=== PATIENT | male | born 1965 | race American Indian/Alaskan Native ===

== ENCOUNTER 2017-06-09 21:06 | Emergency (ER) | payer SELFPAY ==
--- NOTE | 2017-06-09 22:06 | Emergency Department Report ---
ED Back Pain/Injury HPI - General Chief Complaint: Back Pain/Injury Stated Complaint: BACK PAIN/WORK RELATED Source: patient Limitations: No Limitations - History of Present Illness Initial Comments: Patient relates he injured lower back while lifting something heavy at work today while bending over. Patient denies any leg numbness or weakness, denies abdominal pain, nausea vomiting diarrhea, or testicular pain. Patient states he has had this pain before. Patient deferring x-rays MD Complaint: back pain -: Sudden, This afternoon Place: work Radiation: none Severity: moderate Severity scale (0 -10): 5 Quality: aching Consistency: constant Worsens With: movement, walking Context: while lifting, bending Associated Symptoms: denies other symptoms - Related Data Previous Rx's Medication Instructions Recorded Last Taken Type Acetaminophen/Codeine [Tylenol #3] 1 tab PO Q6H PRN #20 tab 03/10/15 Unknown Rx Cyclobenzaprine [Flexeril 10mg] 10 mg PO TID PRN #30 tablet 03/10/15 Unknown Rx Ibuprofen [Motrin] 600 mg PO Q8H PRN #50 tablet 03/10/15 Unknown Rx Metaxalone [Skelaxin] 800 mg PO TID #20 tablet 06/09/17 Unknown Rx traMADol [Ultram 50 MG tab] 50 mg PO Q4HR PRN #20 tablet 06/09/17 Unknown Rx Allergies Allergy/AdvReac Type Severity Reaction Status Date / Time No Known Allergies Allergy Verified 03/10/15 17:40 ED Review of Systems ROS: Stated complaint: BACK PAIN/WORK RELATED Other details as noted in HPI Constitutional: denies: chills, fever Eyes: denies: eye pain, eye discharge, vision change ENT: denies: ear pain, throat pain Respiratory: denies: cough, shortness of breath, wheezing Cardiovascular: denies: chest pain, palpitations Gastrointestinal: denies: abdominal pain, nausea, vomiting, diarrhea Genitourinary: denies: dysuria, frequency, hematuria, discharge, testicular pain , testicular mass Musculoskeletal: back pain Skin: denies: rash, lesions Neurological: denies: headache, numbness, paresthesias, abnormal gait ED Past Medical Hx - Past Medical History Previous Medical History?: No - Surgical History Past Surgical History?: No - Social History Smoking Status: Never Smoker Substance Use Type: None - Medications Home Medications: Home Medications Medication Instructions Recorded Confirmed Last Taken Type Acetaminophen/Codeine [Tylenol #3] 1 tab PO Q6H PRN #20 tab 03/10/15 Unknown Rx Cyclobenzaprine [Flexeril 10mg] 10 mg PO TID PRN #30 tablet 03/10/15 Unknown Rx Ibuprofen [Motrin] 600 mg PO Q8H PRN #50 tablet 03/10/15 Unknown Rx Metaxalone [Skelaxin] 800 mg PO TID #20 tablet 06/09/17 Unknown Rx traMADol [Ultram 50 MG tab] 50 mg PO Q4HR PRN #20 tablet 06/09/17 Unknown Rx ED Physical Exam - General Limitations: No Limitations General appearance: alert, in no apparent distress - Head Head exam: Present: atraumatic, normocephalic - Eye Eye exam: Present: normal appearance, PERRL, EOMI - ENT ENT exam: Present: normal exam, mucous membranes moist - Neck Neck exam: Present: normal inspection, full ROM. Absent: tenderness, meningismus - Respiratory Respiratory exam: Absent: respiratory distress - Cardiovascular Cardiovascular Exam: Present: regular rate - GI/Abdominal GI/Abdominal exam: Present: soft. Absent: distended, tenderness, guarding, rebound, rigid, mass, pulsatile mass - exam: Present: other (deferred) - Back Exam Back exam: Present: full ROM, tenderness, paraspinal tenderness (left paraspinous tenderness), other (positive straight leg raise left side 15 neurovascular motor intact left foot). Absent: CVA tenderness (R), CVA tenderness (L), vertebral tenderness - Neurological Exam Neurological exam: Present: alert, oriented X3, CN II-XII intact, normal gait, reflexes normal - Skin Skin exam: Present: warm, dry, intact, normal color. Absent: rash ED Course Vital Signs 06/09/17 21:09 Temperature 98.4 F Pulse Rate 69 Respiratory 18 Rate Blood Pressure 131/81 O2 Sat by Pulse 99 Oximetry Critical care attestation.: If time is entered above; I have spent that time in minutes in the direct care of this critically ill patient, excluding procedure time. ED Disposition Clinical Impression: Low back strain Disposition: DC-01 TO HOME OR SELFCARE Is pt being admited?: No Condition: Stable Instructions: Muscle Strain (ED), Low Back Strain (ED) Prescriptions: Metaxalone [Skelaxin] 800 mg PO TID #20 tablet traMADol [Ultram 50 MG tab] 50 mg PO Q4HR PRN #20 tablet PRN Reason: Pain Referrals: PRIMARY CARE, [Primary Care Provider] - 3-5 Days JOSIAS RUGGIERO MD [Staff Physician] - 3-5 Days Forms: Work/School Release Form(ED)
[2017-06-09] MEDS ORDERED: NORCO 7.5/325 PO ONE (22:10)
[2017-06-09] MEDS ORDERED: FLEXERIL PO ONE (22:10)
[2017-06-09 23:35] VITALS: BP 123/80
== END 2017-06-09 23:52 | disposition home or self-care (01) ==
LOC: ED 21:06
DX: S39.012A Strain of muscle, fascia and tendon of lower back, initial encounter (principal); X50.0XXA Overexertion from strenuous movement or load, initial encounter; Y93.89 Activity, other specified; Y99.8 Other external cause status; Y92.89 Other specified places as the place of occurrence of the external cause
CPT/HCPCS: 99282

== ENCOUNTER 2021-11-15 07:50 | Emergency (ER) | payer OTHER, SELFPAY ==
--- NOTE | 2021-11-15 08:46 | Emergency Department Report ---
Chief Complaint: Fever Stated Complaint: covid symptoms Time Seen by Provider: 11/15/21 08:36 - HPI History of Present Illness: 56-year-old -[place] male presents to the emergency room stating that he has lost his taste and smell. Patient is unvaccinated. Pending his Covid test. Denies any shortness of breath chest pain no fever no chills. - Exam Vital Signs: Vital Signs 11/15/21 08:23 Temperature 98.8 F Pulse Rate 90 Respiratory 18 Rate Blood Pressure 121/65 O2 Sat by Pulse 97 Oximetry Physical Exam: General: Awake, appropriately interactive, no acute distress. Neck: Supple. Full range of motion intact. Cardiovascular: Normal peripheral perfusion. Pulmonary: No respiratory distress. Patient is speaking normally without use of accessory muscles. Skin: No apparent rashes or lesions. Neurological: No facial asymmetry. Speech is clear. Follows commands. Patient is alert and oriented. Musculoskeletal: Full range of motion, Able to bear weight and ambulate without difficulty. Distal neurovascular and motor/sensory function is intact. Psych: Cooperative. Appropriate mood and affect. MSE screening note: Focused history and physical exam performed. Due to findings the following was ordered: 56-year-old -[place] male presents to the emergency room stating that he has lost his taste and smell. Patient is unvaccinated. Pending his Covid test. Denies any shortness of breath chest pain no fever no chills. Discussed with patient to increase his fluids and take Tylenol or ibuprofen for body aches fever. He can take [id number] cough and cold medication if he develops a cough. Discussed with patient that it may take 3 to 6 months for his taste to return. He needs to follow-up with his primary care provider. ED Disposition for MSE Clinical Impression: COVID Disposition: 01 HOME / SELF CARE / HOMELESS Is pt being admited?: No Does the pt Need Aspirin: No Condition: Stable Instructions: COVID-19 Frequently Asked Questions, COVID-19: How to Protect Yourself and Others - CDC, Prevent the Spread of COVID-19 if You Are Sick - CDC Additional Instructions: Your symptoms appear most consistent with a nonspecific viral syndrome. However, given this current pandemic, COVID-19 is in the differential of possibilities. In the meantime, isolate/quarantine yourself and stay away from anyone who is elderly, immunocompromised or chronically ill. You can use ibuprofen every 6-8 hours and Tylenol every 4-8 hours, using the dosing on the back of the bottle, as needed for any fever or body aches. Return to the emergency department with any worsening of your symptoms, development of chest pain or shortness of breath, or with any acute distress. I recommend getting Covid vaccination 3 months after your positive Covid test. Referrals: Your, primary care provider [Other] - 3-5 Days Forms: Work/School Release Form(ED) Time of Disposition: 08:43
[2021-11-15 09:34] VITALS: BP 123/70
== END 2021-11-15 09:33 | disposition home or self-care (01) ==
LOC: ED 07:50
DX: U07.1 COVID-19 (principal)
CPT/HCPCS: 99282